=== PATIENT | female | born 1985 | race Caucasian/White ===

== ENCOUNTER 2017-09-09 14:04 | Emergency (ER) | payer SELFPAY ==
--- NOTE | 2017-09-09 14:20 | ER Report ---
History and Physical Time Seen By MD: 14:16 HPI/ROS CHIEF COMPLAINT: Anxiety HISTORY OF PRESENT ILLNESS: This is a 31-year-old female who presents to the emergency department with her sister for withdrawals and anxiety. Patient states that she recently moved to [place] to be with her sister and family as she has had a long-standing history of methamphetamine abuse, benzodiazepine abuse as well as volatile relationships in the past. Patient has returned phone the room, states she is having an anxiety attack. Patient states the last time she did meth was roughly 2 weeks ago. She is taking Adderall in lieu of the methamphetamines. Patient does not want to be admitted to the behavioral health unit. Patient does not show any signs of self-harm, no indication of suicidal ideation, no homicidal ideation. I did talk to the patient at length about the behavioral health unit, the benefits of helping with withdrawals and facilitating a local mental health provider that can help with the addiction process, she states she just wants to follow-up with a psychiatrist and feels as though the medications would help her right now. I did tell her that I do not feel comfortable sending her home on benzodiazepines with her history of addiction and history of abuse. Patient does have intermittent chest pain and shortness of breath, this seems to be consistent with her anxiety, when she gets very worked up while I am in the room she begins to have shortness of breath, but once she is calm the shortness of breath abates. Patient also has a history of bipolar. And possible borderline personality. Patient denies rashes however she does state that she feels like bugs are crawling on her at various times. She also states she feels like she has something in her ears. REVIEW OF SYSTEMS: Constitutional: No fever, no chills. Eyes: No discharge. ENT: No sore throat. Cardiovascular: No chest pain, no palpitations. Respiratory: As above. Gastrointestinal: No abdominal pain, no vomiting. Genitourinary: No hematuria. Musculoskeletal: No back pain. Skin: As above. Neurological: As above. Psych: As above. Allergies: Uncoded Allergies: SULFA (Allergy, Intermediate, 09/09/17) Home Meds Active Scripts Dicyclomine Hcl (DICYCLOMINE HCL) 20 Mg Tablet, 20 MG PO QID, #12 TAB 0 Refills Prov:LILLIAN CAMARA RIB KNITTER-BC 09/09/17 Ondansetron (ZOFRAN ODT) 4 Mg Tab.rapdis, 4 MG PO Q6H Y for NAUSEA/VOMITING, # 20 TAB.EDWARD Prov:LILLIAN CAMARA [facility]- 09/09/17 Reported Medications Amphet Asp/Amphet/D-Amphet (ADDERALL 20 MG TABLET) 20 Mg Tablet, 20 MG PO BID 09/09/17 Oxcarbazepine (TRILEPTAL) 600 Mg Tablet, 600 MG PO 09/09/17 Levothyroxine Sodium (LEVOTHYROXINE SODIUM) 100 Mcg Tablet, 125 MCG PO QDAY, TAB 09/09/17 Fluoxetine Hcl (PROZAC) 40 Mg Capsule, 40 MG PO QDAY, CAPSULE 09/09/17 Past Medical/Surgical History Patient has a past medical and surgical history of methamphetamine use, cocaine use heroin use, marijuana use, wine and beer, anxiety, depression, bipolar. Reviewed Nurses Notes: Yes Constitutional Vital Sign - Last 24 Hours 09/09/17 14:48 Temp 100.0 Pulse 105 Resp 20 B/P (MAP) 150/96 Pulse Ox 95 Physical Exam General Appearance: The patient is alert, has no immediate need for airway protection and no signs of toxicity, anxious and tearful. Eyes: Pupils equal and round no pallor or injection. Pupils 4 mm, equal and reactive. ENT, Mouth: Mucous membranes are moist. Ears: Right proximal canal irritated with small amounts of blood, appears to be traumatic in nature such as itching the ear, TM is intact, pearly chau landmarks noted. Left TM intact, pearly chau landmarks noted, canal intact. Respiratory: There are no retractions, lungs are clear to auscultation. Cardiovascular: Regular rate and rhythm, no murmurs, clicks or rubs. Gastrointestinal: Abdomen is soft and non tender, no masses, bowel sounds normal. Neurological: Alert and oriented 4. Moving all extremities. Following all commands. No focal neuro deficits. Skin: Warm and dry, no rashes. Multiple lesions to the lower extremities, appear to be areas that have been picked at, no cellulitis or erythema to the lesions. Musculoskeletal: Neck is supple non tender. Extremities are nontender, nonswollen and have full range of motion. DIFFERENTIAL DIAGNOSIS: After history and physical exam differential diagnosis was considered for shortness of breath including but not limited to pulmonary infectious process, COPD, asthma, pulmonary embolus and congestive heart failure.depression including functional and major depression, situational depression, medication side effect, drugs and alcohol abuse. Medical Decision Making Data Points Result Diagram: 09/09/17 1517 09/09/17 1517 Laboratory Hematology Test 09/09/17 14:11 09/09/17 15:17 Urine Color Yellow Urine Clarity Cloudy Urine pH 7.0 pH (4.8-9.5) Urine Specific [place] 1.005 Urine Protein Negative mg/dL (NEGATIVE) Urine Glucose (UA) Negative mg/dL (NEGATIVE) Urine Ketones Negative mg/dL (NEGATIVE) Urine Blood Small (NEGATIVE) Urine Nitrite Negative (NEGATIVE) Urine Bilirubin Negative (NEGATIVE) Urine Urobilinogen Negative mg/dL (0.2-1.9) Urine Leukocyte Esterase Small (NEGATIVE) Urine RBC 1 /HPF (0-2/HPF) Urine WBC 3 /HPF (0-5/HPF) Urine Squamous Epithelial Cells Many /LPF (</=FEW) Urine Amorphous Crystals Few /HPF Urine Bacteria Few /HPF (NONE-FEW) Urine Mucus None /HPF (NONE-FEW) Urine HCG, Qualitative Negative (NEGATIVE) Urine Opiates Screen Negative Urine Barbiturates Screen Negative Ur Tricyclic Antidepressants Screen Negative Urine Phencyclidine Screen Negative Urine Amphetamines Screen Positive Urine Benzodiazepines Screen Negative Urine Cocaine Screen Negative Urine Cannabinoids Screen Negative Red Blood Count 4.54 M/uL (4.17-5.56) Mean Corpuscular Volume 83.2 fL (80.0-96.0) Mean Corpuscular Hemoglobin 28.8 pg (26.0-33.0) Mean Corpuscular Hemoglobin Concent 34.6 g/dL (32.0-36.0) Red Cell Distribution Width 13.8 % (11.5-14.5) Mean Platelet Volume 7.2 fL (7.2-11.1) Neutrophils (%) (Auto) 63.1 % (39.4-72.5) Lymphocytes (%) (Auto) 27.2 % (17.6-49.6) Monocytes (%) (Auto) 8.3 % (4.1-12.4) Eosinophils (%) (Auto) 0.5 % (0.4-6.7) Basophils (%) (Auto) 0.9 % (0.3-1.4) Nucleated RBC Relative Count (auto) 0.1 /100WBC Neutrophils # (Auto) 3.2 K/uL (2.0-7.4) Lymphocytes # (Auto) 1.4 K/uL (1.3-3.6) Monocytes # (Auto) 0.4 K/uL (0.3-1.0) Eosinophils # (Auto) 0.0 K/uL (0.0-0.5) Basophils # (Auto) 0.0 K/uL (0.0-0.1) Nucleated RBC Absolute Count (auto) 0.01 K/uL Sodium Level 139 mmol/L (137-145) Potassium Level 3.6 mmol/L (3.5-5.0) Chloride Level 101 mmol/L (98-107) Carbon Dioxide Level 23 mmol/L (22-31) Blood Urea Nitrogen 11 mg/dl (7-18) Creatinine 0.70 mg/dl (0.52-1.04) Glomerular Filtration Rate Calc > 60.0 Random Glucose 80 mg/dl (75-110) Calcium Level 9.6 mg/dl (8.4-10.2) Magnesium Level 2.2 mg/dl (1.7-2.2) Total Bilirubin 0.3 mg/dl (0.2-1.3) Aspartate Amino Transf (AST/SGOT) 34 U/L (0-35) Alanine Aminotransferase (ALT/SGPT) 38 U/L (0-56) Alkaline Phosphatase 70 U/L (0-126) Total Protein 7.3 gm/dl (6.3-8.2) Albumin 4.3 g/dl (3.5-5.0) Salicylates Level 36 mg/L Salicylate Last Dose Date unk Acetaminophen Level < 10 ug/ml Serum Alcohol < 10 mg/dl Chemistry Test 09/09/17 14:11 09/09/17 15:17 Urine Color Yellow Urine Clarity Cloudy Urine pH 7.0 pH (4.8-9.5) Urine Specific [place] 1.005 Urine Protein Negative mg/dL (NEGATIVE) Urine Glucose (UA) Negative mg/dL (NEGATIVE) Urine Ketones Negative mg/dL (NEGATIVE) Urine Blood Small (NEGATIVE) Urine Nitrite Negative (NEGATIVE) Urine Bilirubin Negative (NEGATIVE) Urine Urobilinogen Negative mg/dL (0.2-1.9) Urine Leukocyte Esterase Small (NEGATIVE) Urine RBC 1 /HPF (0-2/HPF) Urine WBC 3 /HPF (0-5/HPF) Urine Squamous Epithelial Cells Many /LPF (</=FEW) Urine Amorphous Crystals Few /HPF Urine Bacteria Few /HPF (NONE-FEW) Urine Mucus None /HPF (NONE-FEW) Urine HCG, Qualitative Negative (NEGATIVE) Urine Opiates Screen Negative Urine Barbiturates Screen Negative Ur Tricyclic Antidepressants Screen Negative Urine Phencyclidine Screen Negative Urine Amphetamines Screen Positive Urine Benzodiazepines Screen Negative Urine Cocaine Screen Negative Urine Cannabinoids Screen Negative White Blood Count 5.1 k/uL (4.5-11.0) Red Blood Count 4.54 M/uL (4.17-5.56) Hemoglobin 13.1 g/dL (12.0-16.0) Hematocrit 37.8 % (34.0-47.0) Mean Corpuscular Volume 83.2 fL (80.0-96.0) Mean Corpuscular Hemoglobin 28.8 pg (26.0-33.0) Mean Corpuscular Hemoglobin Concent 34.6 g/dL (32.0-36.0) Red Cell Distribution Width 13.8 % (11.5-14.5) Platelet Count 333 K/uL (150-450) Mean Platelet Volume 7.2 fL (7.2-11.1) Neutrophils (%) (Auto) 63.1 % (39.4-72.5) Lymphocytes (%) (Auto) 27.2 % (17.6-49.6) Monocytes (%) (Auto) 8.3 % (4.1-12.4) Eosinophils (%) (Auto) 0.5 % (0.4-6.7) Basophils (%) (Auto) 0.9 % (0.3-1.4) Nucleated RBC Relative Count (auto) 0.1 /100WBC Neutrophils # (Auto) 3.2 K/uL (2.0-7.4) Lymphocytes # (Auto) 1.4 K/uL (1.3-3.6) Monocytes # (Auto) 0.4 K/uL (0.3-1.0) Eosinophils # (Auto) 0.0 K/uL (0.0-0.5) Basophils # (Auto) 0.0 K/uL (0.0-0.1) Nucleated RBC Absolute Count (auto) 0.01 K/uL Glomerular Filtration Rate Calc > 60.0 Calcium Level 9.6 mg/dl (8.4-10.2) Magnesium Level 2.2 mg/dl (1.7-2.2) Total Bilirubin 0.3 mg/dl (0.2-1.3) Aspartate Amino Transf (AST/SGOT) 34 U/L (0-35) Alanine Aminotransferase (ALT/SGPT) 38 U/L (0-56) Alkaline Phosphatase 70 U/L (0-126) Total Protein 7.3 gm/dl (6.3-8.2) Albumin 4.3 g/dl (3.5-5.0) Salicylates Level 36 mg/L Salicylate Last Dose Date unk Acetaminophen Level < 10 ug/ml Serum Alcohol < 10 mg/dl Toxicology Test 09/09/17 14:11 09/09/17 15:17 Urine Opiates Screen Negative Urine Barbiturates Screen Negative Ur Tricyclic Antidepressants Screen Negative Urine Phencyclidine Screen Negative Urine Amphetamines Screen Positive Urine Benzodiazepines Screen Negative Urine Cocaine Screen Negative Urine Cannabinoids Screen Negative Salicylates Level 36 mg/L Salicylate Last Dose Date unk Acetaminophen Level < 10 ug/ml Serum Alcohol < 10 mg/dl Urinalysis Test 09/09/17 14:11 Urine Color Yellow Urine Clarity Cloudy Urine pH 7.0 pH (4.8-9.5) Urine Specific [place] 1.005 Urine Protein Negative mg/dL (NEGATIVE) Urine Glucose (UA) Negative mg/dL (NEGATIVE) Urine Ketones Negative mg/dL (NEGATIVE) Urine Blood Small (NEGATIVE) Urine Nitrite Negative (NEGATIVE) Urine Bilirubin Negative (NEGATIVE) Urine Urobilinogen Negative mg/dL (0.2-1.9) Urine Leukocyte Esterase Small (NEGATIVE) Urine RBC 1 /HPF (0-2/HPF) Urine WBC 3 /HPF (0-5/HPF) Urine Squamous Epithelial Cells Many /LPF (</=FEW) Urine Amorphous Crystals Few /HPF Urine Bacteria Few /HPF (NONE-FEW) Urine Mucus None /HPF (NONE-FEW) Urine HCG, Qualitative Negative (NEGATIVE) ED Course/Re-evaluation ED Course The patient was admitted to room. A history and physical were obtained. Differential diagnoses were considered. The patient was agreeable to basic blood work and urine collection, the blood work was unremarkable, the urine drug screen was positive for amphetamines however this is likely due to the use of Adderall. Negative UA. At the intake the patient, the nurse, the patient's sister and I had a rather lengthy discussion on her symptoms, her concerns and what she was here for. The patient last used methamphetamines proximal leg 2 weeks ago, she denies taking any recent narcotics or benzodiazepines or using alcohol. Patient also states that she has moved out here to [place] to be close to her family, left her significant other and child. Patient states she has been intermittently for approximately one week. Patient has also been taking Adderall in lieu of the methamphetamines. Initially in our discussion I talked about admitting her to the behavioral health unit to help with her addiction and her cravings to help facilitate close follow-up with a psychiatrist and close observation with medications. The patient was not wanting to do this however after multiple discussions I felt that the patient may be would consider this which time we discussed using Valium however the patient multiple a decided that she did not want to be admitted to the behavioral health unit at which time we decided to proceed with something other than Valium at which time I decided to try clonidine, I also tried a clonidine patch, by mouth Bentyl as well as Zofran. The patient became very agitated and upset I did go back in to discuss my concerns about using benzodiazepines without having close observation and having her in the behavioral health unit. The patient was still agitated and yelling and cursing very upset with me so was not willing to give her benzodiazepines at this time. I continued to tell her that my goal is her safety and this time in her current state I don't feel that giving benzodiazepines is the safest thing for her with the history of addiction and poly-substance abuse. The patient states that she does not want anything else to do here she does not want anything to do with me as noted below. The patient was discharged home in the hopes that she would follow up with a psychiatrist which we tried to facilitate here in the emergency department. 09/09/2017 5:21:28 pm I did go back into the room to evaluate the patient, her sister is at the bedside still. The patient is very agitated and angry that I have not given her a Valium for her anxiety, patient states that she has had this in the past and has worked. Initially when she came in we had a discussion of potentially going to the behavioral health unit at which time I thoughts a Valium would be appropriate however since she was not going to go to the behavioral health unit I opted to try other medications for her anxiety. The patient is very agitated and cursing at me and states that "I am the reason that people with addictions and end up going back to the streets to find drugs to treat addiction". I did try to explain to the patient that I'm looking out for her well-being and long-term the benzodiazepines are not the answer for her addiction. At this point the patient's states that she is done with me, she states that I'm the reason that her blood pressure is now going through the roof and she would like to go home. Unfortunately at this time any further discussion would not be fruitful therefore I elected to go ahead and discharge the patient home. I did however send the patient home with a prescription for Bentyl as well as Zofran, she also has a clonidine patch that was placed in the emergency department. I also had one of the behavioral health techs come down and talk to her, but unfortunately she was not willing to take his advise and still unwilling to even consider S for help with her addiction and facilitating follow-up with a psychiatrist. The tech did provide them with some local resources for addiction and outpatient therapy treatment. Decision to Disposition Date: September 09, 2017 Decision to Disposition Time: 17:11 Depart Departure Latest Vital Signs Vital Signs Date Time Temp Pulse Resp B/P (MAP) Pulse Ox O2 Delivery O2 Flow Rate FiO2 09/09/17 14:48 100.0 105 20 150/96 95 Impression: Primary Impression: Anxiety Additional Impression: Polysubstance (excluding opioids) dependence Condition: Improved Disposition: HOME OR SELF-CARE Referrals: [facility] New Scripts Dicyclomine Hcl (DICYCLOMINE HCL) 20 Mg Tablet 20 MG PO QID, #12 TAB 0 Refills Prov: LILLIAN CAMARA [facility]- 09/09/17 Ondansetron (ZOFRAN ODT) 4 Mg Tab.rapdis 4 MG PO Q6H Y for NAUSEA/VOMITING, #20 TAB.EDWARD Prov: LILLIAN CAMARA [facility]- 09/09/17 Patient Instructions: Anxiety (ED), Polysubstance Abuse (ED) Additional Instructions: Drink plenty of fluids. Take the medications as needed and as directed. Please follow up with a psychologist as soon as possible. Please return to the ED for any other concerns or worsening symptoms. Problem Qualifiers LILLIAN CAMARA RIB KNITTER-BC September 09, 2017 14:20
[2017-09-09] MEDS ORDERED: LEVO-3 PO (14:47)
[2017-09-09] MEDS ORDERED: FLUO40CA76 PO (14:47)
[2017-09-09] MEDS ORDERED: OXCA600T32 PO (14:47)
[2017-09-09] MEDS ORDERED: AMPH20TA18 PO (14:47)
[2017-09-09 14:48] VITALS: BP 150/96
[2017-09-09] MEDS ORDERED: cloNIDine HCL 0.1 MG TAB PO ONE (14:55)
[2017-09-09 15:23] LABS: PLATELET COUNT, AUTOMATED 333 K/uL (150-450)
[2017-09-09] MEDS ORDERED: DICYCLOMINE HCL 10 MG CAP PO ONE (15:40)
[2017-09-09] MEDS ORDERED: cloNIDine HCL 0.1 MG TDSY TD ONE (15:40)
[2017-09-09] MEDS ORDERED: ONDANSETRON 4 MG ODT TABDP SL ONE (15:40)
[2017-09-09] MEDS ORDERED: DICY20TA70 PO (17:16)
[2017-09-09] MEDS ORDERED: ONDA4TAB PO (17:16)
== END 2017-09-09 17:31 | disposition home or self-care (01) ==
LOC: ER 14:06
DX: F41.9 Anxiety disorder, unspecified (principal); F19.20 Other psychoactive substance dependence, uncomplicated
CPT/HCPCS: 80305; 80320; 80329; 81001; 81025; 83735; 84443; 85025; 99283; S0119; 82040; 82247; 82310; 82374; 82435; 82565; 82947; 84075; 84132; 84155; 84295; 84450; 84460; 84520

== ENCOUNTER 2018-04-02 15:58 | Emergency (ER) | payer MEDICAID ==
[~2018-04-02 15:58] MED LIST changes: -ADDE30XRPT PO; -ALB18R INH; -CHOL10005 PO; -GABA-549 PO; -IBUP600T22 PO; -LEVO125T77 PO; -MULT-1379 PO; -NICO4LOZ35 BC; -OMEG1CAP35 PO
[2018-04-02 16:00] VITALS: BP 108/80
--- NOTE | 2018-04-02 16:08 | ER Report ---
History and Physical Time Seen By MD: 16:40 Hx. of Stated Complaint: ETOH INTOXICATION HPI/ROS CHIEF COMPLAINT: intoxicated HISTORY OF PRESENT ILLNESS: PT here for evaluation of intoxication. Pt admits to drinking and abusing her adderall. EMS called by family members. Sister in room states that pt is suicidal. Pt when asked if she is suicidal she states "i don't know". Pt denies any suicidal plans. Pt does admit to substance abuse and does not feel she can stop. Pt c/o chronic pain in her neck which she was told is a herniated disc. Pt states she is supposed to be on gabapentin but does not like how it makes here feel "i am like a zombie". PT also states that her left ear hurts her. No fevers. no chills.PT is looking for help to stop drinking. REVIEW OF SYSTEMS: Constitutional: No fever, no chills. Eyes: No discharge. ENT: No sore throat, L ear pain Cardiovascular: No chest pain, no palpitations. Respiratory: No cough, no shortness of breath. Gastrointestinal: No abdominal pain, no vomiting. Genitourinary: No hematuria. Musculoskeletal: No back pain. Skin: No rashes. Neurological: No headache. Psych: not homicidal, ? suicidal Allergies: Uncoded Allergies: SULFA (Allergy, Intermediate, 09/09/17) Home Meds Reported Medications Amphet Asp/Amphet/D-Amphet (ADDERALL XR 30 MG CAPSULE) 30 Mg Cap.er.24h, 120 MG PO DAILY 04/02/18 Fluoxetine Hcl (PROZAC) 40 Mg Capsule, 40 MG PO QDAY, CAPSULE 09/09/17 Discontinued Reported Medications Amphet Asp/Amphet/D-Amphet (ADDERALL 20 MG TABLET) 20 Mg Tablet, 20 MG PO BID 09/09/17 Oxcarbazepine (TRILEPTAL) 600 Mg Tablet, 600 MG PO 09/09/17 Levothyroxine Sodium (LEVOTHYROXINE SODIUM) 100 Mcg Tablet, 125 MCG PO QDAY, TAB 09/09/17 Discontinued Scripts Dicyclomine Hcl (DICYCLOMINE HCL) 20 Mg Tablet, 20 MG PO QID, #12 TAB 0 Refills Prov:LILLIAN CAMARA [facility]AT[facility] SERVICES REPRESENTATIVE-BC 09/09/17 Ondansetron (ZOFRAN ODT) 4 Mg Tab.rapdis, 4 MG PO Q6H PRN for NAUSEA/VOMITING, #20 TAB.EDWARD Prov:LILLIAN CAMARA [facility]BULATORY SERVICES REPRESENTATIVE-BC 09/09/17 Past Medical/Surgical History Pmhx: anxiety, asthma, cerivcal disc herniation with radiation Pshx:non contrib Reviewed Nurses Notes: Yes Hx Smoking: Yes Hx Substance Use Disorder: Yes (meht, cocaine, heroin, marijuana) Hx Alcohol Use: Yes (wine, beer) Constitutional Vital Sign - Last 24 Hours 04/02/18 16:00 Temp 97.6 Pulse 72 Resp 20 B/P (MAP) 108/80 Pulse Ox 95 O2 Delivery Room Air Physical Exam General Appearance: The patient is alert, has no immediate need for airway protection, very tearful Eyes: Pupils equal and round no pallor or injection, EOMI ENT: no pharyngeal erythema or exudates, Mucous membranes are moist, TM are nl b/l, + left ear pain with manipulation of tragus and auricle, no active drainage Respiratory: There are no retractions, lungs are clear to auscultation. Cardiovascular: Regular rate and rhythm. pulses are equal and symmetrical Gastrointestinal: Abdomen is soft and non tender, no masses, bowel sounds normal, no guarding, no rigidity or rebound Neurological: Cranial nerves II-XII grossly intact, no sensory or motor loss Skin: Warm and dry, no rashes. Musculoskeletal: Neck is supple non tender, no vertebral tenderness Extremities are nontender, non swollen and have full range of motion. Psych: tearful DIFFERENTIAL DIAGNOSIS: After history and physical exam differential diagnosis was considered for polysubstance abuse, behavioral disorder Medical Decision Making Data Points Result Diagram: 04/02/18 1605 04/02/18 1605 Laboratory Hematology Test 04/02/18 16:05 Red Blood Count 5.08 M/uL (4.17-5.56) Mean Corpuscular Volume 80.0 fL (80.0-96.0) Mean Corpuscular Hemoglobin 26.2 pg (26.0-33.0) Mean Corpuscular Hemoglobin Concent 32.8 g/dL (32.0-36.0) Red Cell Distribution Width 14.3 % (11.5-14.5) Mean Platelet Volume 7.9 fL (7.2-11.1) Neutrophils (%) (Auto) 51.7 % (39.4-72.5) Lymphocytes (%) (Auto) 37.3 % (17.6-49.6) Monocytes (%) (Auto) 8.3 % (4.1-12.4) Eosinophils (%) (Auto) 1.6 % (0.4-6.7) Basophils (%) (Auto) 1.1 % (0.3-1.4) Nucleated RBC Relative Count (auto) 0.3 /100WBC Neutrophils # (Auto) 3.2 K/uL (2.0-7.4) Lymphocytes # (Auto) 2.3 K/uL (1.3-3.6) Monocytes # (Auto) 0.5 K/uL (0.3-1.0) Eosinophils # (Auto) 0.1 K/uL (0.0-0.5) Basophils # (Auto) 0.1 K/uL (0.0-0.1) Nucleated RBC Absolute Count (auto) 0.02 K/uL Sodium Level 141 mmol/L (137-145) Potassium Level 3.5 mmol/L (3.5-5.0) Chloride Level 110 mmol/L (98-107) Carbon Dioxide Level 21 mmol/L (22-31) Blood Urea Nitrogen 8 mg/dl (7-18) Creatinine 0.60 mg/dl (0.52-1.04) Glomerular Filtration Rate Calc > 60.0 Random Glucose 88 mg/dl (75-110) Calcium Level 8.7 mg/dl (8.4-10.2) Magnesium Level 2.3 mg/dl (1.7-2.2) Total Bilirubin 0.2 mg/dl (0.2-1.3) Aspartate Amino Transf (AST/SGOT) 25 U/L (0-35) Alanine Aminotransferase (ALT/SGPT) 17 U/L (0-56) Alkaline Phosphatase 64 U/L (0-126) Total Protein 7.1 g/dl (6.3-8.2) Albumin 3.9 g/dl (3.5-5.0) Salicylates Level 20 mg/L Salicylate Last Dose Date unknown Acetaminophen Level < 10 ug/ml Serum Alcohol 289 mg/dl Chemistry Test 04/02/18 16:05 White Blood Count 6.1 k/uL (4.5-11.0) Red Blood Count 5.08 M/uL (4.17-5.56) Hemoglobin 13.3 g/dL (12.0-16.0) Hematocrit 40.6 % (34.0-47.0) Mean Corpuscular Volume 80.0 fL (80.0-96.0) Mean Corpuscular Hemoglobin 26.2 pg (26.0-33.0) Mean Corpuscular Hemoglobin Concent 32.8 g/dL (32.0-36.0) Red Cell Distribution Width 14.3 % (11.5-14.5) Platelet Count 337 K/uL (150-450) Mean Platelet Volume 7.9 fL (7.2-11.1) Neutrophils (%) (Auto) 51.7 % (39.4-72.5) Lymphocytes (%) (Auto) 37.3 % (17.6-49.6) Monocytes (%) (Auto) 8.3 % (4.1-12.4) Eosinophils (%) (Auto) 1.6 % (0.4-6.7) Basophils (%) (Auto) 1.1 % (0.3-1.4) Nucleated RBC Relative Count (auto) 0.3 /100WBC Neutrophils # (Auto) 3.2 K/uL (2.0-7.4) Lymphocytes # (Auto) 2.3 K/uL (1.3-3.6) Monocytes # (Auto) 0.5 K/uL (0.3-1.0) Eosinophils # (Auto) 0.1 K/uL (0.0-0.5) Basophils # (Auto) 0.1 K/uL (0.0-0.1) Nucleated RBC Absolute Count (auto) 0.02 K/uL Glomerular Filtration Rate Calc > 60.0 Calcium Level 8.7 mg/dl (8.4-10.2) Magnesium Level 2.3 mg/dl (1.7-2.2) Total Bilirubin 0.2 mg/dl (0.2-1.3) Aspartate Amino Transf (AST/SGOT) 25 U/L (0-35) Alanine Aminotransferase (ALT/SGPT) 17 U/L (0-56) Alkaline Phosphatase 64 U/L (0-126) Total Protein 7.1 g/dl (6.3-8.2) Albumin 3.9 g/dl (3.5-5.0) Salicylates Level 20 mg/L Salicylate Last Dose Date unknown Acetaminophen Level < 10 ug/ml Serum Alcohol 289 mg/dl Toxicology Test 04/02/18 16:05 Salicylates Level 20 mg/L Salicylate Last Dose Date unknown Acetaminophen Level < 10 ug/ml Serum Alcohol 289 mg/dl ED Course/Re-evaluation ED Course spoke with Dr. Urena who accepts pt. Pt did sign in volunarily. Decision to Disposition Date: Apr 02, 2018 Decision to Disposition Time: 17:00 Depart Departure Latest Vital Signs Vital Signs Date Time Temp Pulse Resp B/P (MAP) Pulse Ox O2 Delivery O2 Flow Rate FiO2 04/02/18 16:00 97.6 72 20 108/80 95 Room Air Impression: Primary Impression: Polysubstance abuse Additional Impressions: Alcohol intoxication Depression Left ear pain Condition: Condition Unchanged Disposition: XFER TO [facility] Problem Qualifiers Additional Impressions: Alcohol intoxication Complication of substance-induced condition: uncomplicated Qualified Codes: F10.920 - Alcohol use, unspecified with intoxication, uncomplicated Depression Depression Type: major depressive disorder Major depression recurrence: unspecified whether recurrent Active/Remission status: remission status unspecified Qualified Codes: F32.9 - Major depressive disorder, single episode, unspecified ERMELINDA JORGENSEN DO Apr 02, 2018 16:08
[2018-04-02] MEDS ORDERED: ADDE30XRPT PO (16:22)
[2018-04-02 16:30] LABS: PLATELET COUNT, AUTOMATED 337 K/uL (150-450)
[2018-04-02] MEDS: NICOTINE 21 MG/24 HR PATCH TD ONE (17:00)
== END 2018-04-02 17:20 ==
LOC: ER 16:10
DX: F19.10 Other psychoactive substance abuse, uncomplicated (principal); F10.920 Alcohol use, unspecified with intoxication, uncomplicated; Y90.8 Blood alcohol level of 240 mg/100 ml or more; F32.9 Major depressive disorder, single episode, unspecified; H92.02 Otalgia, left ear
CPT/HCPCS: 80305; 81001; 83735; 84443; 84703; 85025; 99284; G0480; 80320; 80329; 82040; 82247; 82310; 82374; 82435; 82565; 82947; 84075; 84132; 84155; 84295; 84450; 84460; 84520

== ENCOUNTER 2018-04-02 17:18 | Inpatient (IN) | payer MEDICAID ==
[~2018-04-02] VITALS: Ht 157.5 cm; Wt 59.0 kg
[~2018-04-02 17:18] MED LIST changes: +ADDE30XRPT PO
[2018-04-02] MEDS ORDERED: NICOTINE CARTRIDGE 1 EA PO PRN (17:30)
[2018-04-02] MEDS ORDERED: DIAZEPAM 10 MG TAB PO PRN (17:30)
[2018-04-02] MEDS ORDERED: MAG HYD/AL HYD/SIMETH 30ML UDC PO PRN (17:30)
[2018-04-02 17:40] VITALS: BP 116/74
[2018-04-02 21:45] VITALS: BP 108/58
[2018-04-02] MEDS: NICOTINE INH SYSTEM 10 MG/INH INH PRN (21:58)
[2018-04-02] MEDS ORDERED: DIAZEPAM 10 MG TAB PO ONE (22:05)
[2018-04-03] MEDS: DIAZEPAM 10 MG TAB PO PRN ×3 (00:01→22:09)
[2018-04-03 03:30] VITALS: BP 105/70
[2018-04-03 08:20] VITALS: BP 122/74
[2018-04-03] MEDS: FOLIC ACID 1 MG TAB PO SCH (08:35)
[2018-04-03] MEDS: MULTIVITAMINS TAB PO SCH (08:36)
[2018-04-03] MEDS: THIAMINE HCL 100 MG TAB PO SCH (08:36)
[2018-04-03 10:30] VITALS: BP 120/78
[2018-04-03] MEDS ORDERED: ALBUTEROL 8 GM INHALER INH PRN (11:30)
[2018-04-03] MEDS: IBUPROFEN 600 MG TAB PO PRN (12:07)
[2018-04-03 13:15] VITALS: BP 128/70
[2018-04-03] MEDS: NICOTINE INH SYSTEM 10 MG/INH INH PRN (19:12)
[2018-04-03] MEDS: GABAPENTIN 300 MG CAP PO SCH (22:09)
[2018-04-03 22:28] VITALS: BP 120/80
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
[2018-04-04] MEDS: LEVOTHYROXINE SOD 0.125 MG TAB PO SCH (06:00)
[2018-04-04 06:11] VITALS: BP 119/79
[2018-04-04] MEDS: FOLIC ACID 1 MG TAB PO SCH (08:17)
[2018-04-04] MEDS: MULTIVITAMINS TAB PO SCH (08:17)
[2018-04-04] MEDS: FLUoxetine HCL 20 MG CAP PO SCH (08:18)
[2018-04-04] MEDS: THIAMINE HCL 100 MG TAB PO SCH (08:18)
[2018-04-04] MEDS: IBUPROFEN 600 MG TAB PO PRN ×2 (08:20→15:52)
[2018-04-04 10:03] VITALS: BP 128/78
--- NOTE | 2018-04-04 10:54 | BHS Progress Note ---
[facility] - Subjective Progress Notes Subjective Patient admitting to extent of drug and alcohol use, sisters trying to help patient who doesn't seem totally vested in remaining sober. Frustrated, but not having any suicidal thoughts. Sisters living in [place] are frustrated by not being able to help her. Patient remains cooperative on the unit. Suicidal Ideation: None Homicidal Ideation: None [facility] - Objective Physical Exam Vital Signs Hematology Test 04/02/18 16:05 Free Thyroxine 0.80 ng/dl (0.78-2.19) Chemistry Test 04/02/18 16:05 Free Thyroxine 0.80 ng/dl (0.78-2.19) Vital Signs Date Time Temp Pulse Resp B/P (MAP) Pulse Ox O2 Delivery O2 Flow Rate FiO2 04/04/18 06:11 98.0 77 15 119/79 (92) 95 Room Air Vital Signs Date Time Temp Pulse Resp B/P (MAP) Pulse Ox O2 Delivery O2 Flow Rate FiO2 04/04/18 06:11 98.0 77 15 119/79 (92) 95 Room Air Muscle Strength and Tone: WNL Gait and Station: Steady [facility] Medications Reviewed: Side Effects, Benefits of Medication, Risks Allergies Reviewed: Yes Mental Status Exam General Appearance: Casual, Well Groomed, Good Eye Contact, Cooperative, Polite, Good Interaction, Tearful (at times); No Psychomotor Agitation, No Psychomotor Retardation, No Bizarre Mannerisms, No Tics Speech: Clear, Spontaneous, Normal Rate, Normal Rhythm, Normal Volume, Normal Tone; No Garbled, No Rambling, No Inappropriate Mood: Dysthmic/Depressed (frustrated, but improving.) Affect: Full and Appropriate (at times, ), Calm; No Withdrawn, No Tearful, No Anxious, No Agitated Thought Process: Organized, Logical, Goal Directed; No Loose Associations, No Flight of Ideas Thought Content: No Suicidal Ideation, No Homicidal Ideation, No Delusions, No Auditory Halllucinations, No Visual Hallucinations, No Thought Broadcasting, No Ideas of Reference, No Obsessions, No Compulsions Sensorium: Clear Cognition: Alert & Oriented-Person, Alert & Oriented-Place, Alert & Oriented- Time, Btgax-Hinepipl-Bwztherxi Memory: Immediate, Recent, Remote Intelligence: Average Insight Judgment: Poor (due to extent of drug and alcohol use. , underlying cluster B, borderline personality likely) [facility] Assessment and Plan [id number] Encounter Date: Apr 04, 2018 [id number] Encounter Time: 10:30 S Plan: Necessary Precautions, Individual/Group Therapy, Admin/Titrate Meds, Educate Patient Tobacco Medications: Started Multpiple Antipsychotics Used: No Problems: (1) Alcohol withdrawal Status: Acute (2) Borderline personality disorder Status: Chronic (3) Stimulant dependence Status: Chronic (4) Alcohol use disorder, severe, in controlled environment Status: Chronic Condition 1. continue treatment. 2. plan on discharge tomorrow. 3. solidify treatment plans for residential. Problem Qualifiers (1) Alcohol withdrawal: Complication of substance-induced condition: uncomplicated Qualified Codes: F10.230 - Alcohol dependence with withdrawal, uncomplicated TANNER MCKEON MD Apr 04, 2018 10:54
[2018-04-04] MEDS ORDERED: NICOTINE POLACRILEX 4 MG LOZG PO PRN (16:20)
[2018-04-04] MEDS: NICOTINE INH SYSTEM 10 MG/INH INH PRN ×2 (19:15→21:59)
[2018-04-04] MEDS: DIAZEPAM 10 MG TAB PO PRN (21:59)
[2018-04-04] MEDS: GABAPENTIN 300 MG CAP PO SCH (22:03)
[2018-04-05] MEDS ORDERED: LEVOTHYROXINE SOD 0.125 MG TAB PO SCH
[2018-04-05] MEDS ORDERED: FLUoxetine HCL 20 MG CAP PO SCH
[2018-04-05] MEDS: LEVOTHYROXINE SOD 0.125 MG TAB PO SCH (05:16)
[2018-04-05 05:50] VITALS: BP 117/88
[2018-04-05] MEDS: FOLIC ACID 1 MG TAB PO SCH (08:08)
[2018-04-05] MEDS: FLUoxetine HCL 20 MG CAP PO SCH (08:09)
[2018-04-05] MEDS: MULTIVITAMINS TAB PO SCH (08:09)
[2018-04-05] MEDS: THIAMINE HCL 100 MG TAB PO SCH (08:09)
[2018-04-05] MEDS: NICOTINE INH SYSTEM 10 MG/INH INH PRN ×2 (08:44→11:31)
[2018-04-05] MEDS ORDERED: LEVO125T77 PO (10:46)
[2018-04-05] MEDS ORDERED: MULT-1379 PO (10:46)
[2018-04-05] MEDS ORDERED: NICO4LOZ35 BC (10:48)
[2018-04-05] MEDS ORDERED: IBUP600T22 PO (10:49)
[2018-04-05] MEDS ORDERED: ALB18R INH (10:50)
[2018-04-05] MEDS ORDERED: OMEG1CAP35 PO (10:51)
[2018-04-05] MEDS ORDERED: CHOL10005 PO (10:51)
[2018-04-05] MEDS ORDERED: GABA-549 PO ×2 (10:52)
[2018-04-05] MEDS ORDERED: GABAPENTIN 300 MG CAP PO SCH ×4 (10:55→21:00)
[2018-04-06] MEDS ORDERED: LEVOTHYROXINE SOD 0.125 MG TAB PO SCH (06:00)
[2018-04-06] MEDS ORDERED: FLUoxetine HCL 20 MG CAP PO SCH (09:00)
--- NOTE | 2018-04-06 23:13 | SCHAAF DISCHARGE ---
DATE OF ADMISSION: April 02, 2018 DATE OF DISCHARGE: April 05, 2018 ATTENDING PHYSICIAN Reymundo Urena MD Patient was seen at approximately 1030 hours on 05 April 2018 for note concerning this dictation. FINAL DIAGNOSES 1. Stimulant use disorder, severe, methamphetamine, Adderall. 2. Alcohol use disorder, severe. 3. Borderline personality disorder. 4. Patient noted to have supportive relationship with sisters. REASON FOR ADMISSION This is an overall pleasant and cooperative 32-year-old female who continues to olmedo substance use. Patient open about her use of substances and going as far as to continually ask this provider to give her stimulants. Patient not exhibiting any self-harm behaviors on the unit and overall interacting appropriately with her sisters who would visit her on the unit. Patient seemed to get sense of satisfaction out of arguing with her sisters from time to time. Patient was admitted for detox prior to entering rehab, which was set up for early April in [place], [place]. Patient then while on the unit getting detox was able to secure a bed sooner. Patient continued to improve. Detox from alcohol was considered minimal in nature, and patient was appropriate for entrance into rehab. No parasuicidal behaviors were seen, and no aggression towards staff or other patients. PHYSICAL EXAMINATION Please see emergency room note. Notable for: GENERAL: At time of admission, intoxicated 32-year-old female VITAL SIGNS: At time of admission, temperature 97.6, pulse 72, respiratory rate 20, blood pressure 108/80, and pulse oximetry 95% on room air. At time of discharge from [facility], vital signs showed temperature 97.6, pulse 76, respiratory rate 14, blood pressure 117/88, and pulse oximetry 97% on room air. LABORATORY DATA Vitamin D noted to be within normal limits at 38.9. Free T4 low normal at 0.80, and free T3 low normal at 2.4. TSH 0.74 and low normal. CBC unremarkable. CMP notable for magnesium 2.3 and elevated. Notable for normal AST, ALT, and total bilirubin. screen negative. Urinalysis unremarkable. screen negative. Toxicology screen negative for substances of abuse. Salicylates were detectable. Serum alcohol level of 289 upon admission. MENTAL STATUS EXAMINATION AT TIME OF DISCHARGE GENERAL APPEARANCE, BEHAVIOR, AND ATTITUDE: This is a 32-year-old female, appears stated age, making good eye contact. No bizarre mannerisms or tics. Patient interacting well with this provider, her sisters, and other treatment team staff. No psychomotor agitation or retardation. SPEECH: Within normal limits. Regular rate, rhythm, volume, and tone. MOOD: Described as good. AFFECT: Full and bright. THOUGHT PROCESSES: Goal directed, logical. No loose associations or flight of ideas. THOUGHT CONTENT: Free of auditory or visual hallucinations, ideas of reference, thought broadcastings, delusions, obsessions, compulsions. Patient adamantly denying suicidal or homicidal ideation. SENSORIUM: Clear. COGNITION: Alert and oriented to person, place, time, and situation. MEMORY: Immediate, recent, and remote estimated intact. INTELLIGENCE: Average based on interview. INSIGHT AND JUDGMENT: Considered grossly intact in the absence of alcohol or illicit substance use and appropriate for entrance into rehab program. RESULTS OF TESTING Imaging: None. Laboratory data: See above. CONSULTATIONS None. TREATMENT Patient received medications, participated in individual and group therapy. HOSPITAL COURSE Patient's alcohol withdrawal was treated to completion with diazepam per [facility] protocol. Patient's alcohol withdrawal from a physiologic sense was considered minimal in nature. Patient has a history of polysubstance use, and drug-seeking behavior was certainly prevalent on the unit. Patient's alcohol withdrawal was treated to completion and able to enter rehab. CONDITION OF PATIENT ON DISCHARGE Stable. Considered a minimal risk to herself or others and appropriate for entrance into rehab program. DISPOSITION Patient discharged to enter the residential rehab program. She would follow up at [facility]. She would abstain from all illicit substances, alcohol, and prescribed stimulants. She was given the crisis line should symptoms return. Patient was given a three-day supply of medications and would remain on Neurontin, script for Neurontin 300 mg q.1400 hours and 600 mg at bedtime was given, Prozac 40 mg daily, script was written, Synthroid 0.125 mg p.o. q.a.m. to be continued along with multivitamin and minerals. Patient was encouraged to continue nicotine replacement therapy and not return to smoking. Patient had Ventolin HFA inhaler as needed for asthma. Patient was encouraged to take omega-3 fish oil 1000 mg p.o. q.a.m. and vitamin D3 1000 International Units p.o. q.a.m. Risks, benefits, and alternatives of the above discharge plan were discussed. Informed consent was given to proceed with above discharge plan by this competent patient and patient's sisters present at time of discharge. GEOVANNY
== END 2018-04-05 13:15 | DRG 897 ==
LOC: BHS 17:18
PROVIDERS: ADMIT Psychiatry & Neurology Psychiatry; ATTEND Psychiatry & Neurology Psychiatry
DX: F10.230 Alcohol dependence with withdrawal, uncomplicated (principal); F15.20 Other stimulant dependence, uncomplicated; F60.3 Borderline personality disorder; G89.29 Other chronic pain; Y90.8 Blood alcohol level of 240 mg/100 ml or more; J45.909 Unspecified asthma, uncomplicated; Z76.5 Malingerer [conscious simulation]; Z81.1 Family history of alcohol abuse and dependence; Z81.8 Family history of other mental and behavioral disorders; Z62.810 Personal history of physical and sexual abuse in childhood; Z62.811 Personal history of psychological abuse in childhood
CPT/HCPCS: 82652; 84439; 84481; J3535

== ENCOUNTER → 2018-04-02 | Outpatient (CLI) | payer MEDICAID ==
[~2018-04-02] MED LIST: ADDE30XRPT PO; ALB18R INH; AMPH20TA18 PO; CHOL10005 PO; DICY20TA70 PO; FLUO40CA76 PO; GABA-549 PO; IBUP600T22 PO; LEVO-3 PO; LEVO125T77 PO; MULT-1379 PO; NICO4LOZ35 BC; OMEG1CAP35 PO; ONDA4TAB PO; OXCA600T32 PO
== END ==
LOC: AMB 15:41
PROVIDERS: ATTEND Nurse Practitioner
DX: R41.82 Altered mental status, unspecified (principal); F10.221 Alcohol dependence with intoxication delirium; R45.851 Suicidal ideations
CPT/HCPCS: A0425; A0427